=== PATIENT | female | born 1995 | race African-American/Black ===

== ENCOUNTER 2018-11-11 23:46 | Emergency (ER) | payer SELFPAY ==
--- NOTE | 2018-11-11 23:56 | ER ---
Nurse's Notes [facility] Name: Mihir Sifuentes Age: 23 yrs Sex: Female : 1995 Arrival Date: 11/11/2018 Time: 23:46 Bed Waiting Private MD: Diagnosis: ED Course: 11/11 23:46 Patient arrived in ED. am2 23:55 Patient's name was called from ER lobby. No response. Unable to locate patient. Will ea disposition as left without being seen by a provider. Administered Medications: No medications were administered Outcome: 23:56 Patient left the ED. ea Signatures: Paty Fernandez am2 Mami Simmons, RN RN ea
== END 2018-11-11 23:56 | disposition left against medical advice (07) ==
LOC: ER 23:46
DX: Z53.21 Procedure and treatment not carried out due to patient leaving prior to being seen by health care provider (principal)

== ENCOUNTER 2023-04-23 14:33 | Emergency (ER) | payer SELFPAY ==
--- OUTSIDE RECORDS SUMMARY | 2023-04-23 14:38 | XMS REPORT | Continuity of Care Document ---
:1995 Author Organization [facility] t Address [address] [facility] [address] [place] [address] Care Team Providers Name Role Phone ROSA PARKS Attending Clinician Unavailable ROSA PARKS Admitting Clinician Unavailable Problems This patient has no known problems. Allergies, Adverse Reactions, Alerts This patient has no known allergies or adverse reactions. Medications This patient has no known medications. Procedures This patient has no known procedures. Encounters Start End Encounter Admission Attending Care Care Encounter Source Date/Time Date/Time Type Type Clinicians Facility Department ID 2023-02-09 2023-02-09 Inpatient ER GRISELDA PARKS MED [id number] 04:08:00 12:00:00 ROSA [id number] [facility] Results This patient has no known results.
--- NOTE | 2023-04-23 15:27 | ER ---
Nurse's Notes [facility] Name: Mihir Sifuentes Age: 27 yrs Sex: Female : 1995 Arrival Date: 04/23/2023 Time: 14:33 Bed Waiting Private MD: Diagnosis: ED Course: 04/23 14:34 Patient arrived in ED. rg4 14:40 Paty Vasquez NP is PHCP. aj3 14:40 Shawn Stewart MD is Attending Physician. aj3 15:14 not in lobby when called to triage. ll1 Administered Medications: No medications were administered Outcome: 15:26 Patient left the ED. ll1 Signatures: Pati Foster rg4 Raghu Johnson RN RN ll1 Paty Vasquez NP LABORATORY SPECIALIST aj3
--- NOTE | 2023-04-24 15:27 | EDPHYS ---
Physician Documentation [facility] Name: Mihir Sifuentes Age: 27 yrs Sex: Female : 1995 Arrival Date: 04/23/2023 Time: 14:33 Bed Waiting Private MD: ED Physician Shawn Stewart HPI: 04/23 18:56 . aj3 Administered Medications: No medications were administered Disposition Summary: 04/23/23 15:26 Eloped Disposition: Before Triage ll1 Reason: unknown ll1 Signatures: Raghu Johnson RN RN ll1 Paty Vasquez NP LABORER GOLD LEAF aj3 Corrections: (The following items were deleted from the chart) 18:57 17:00 She reports having some vaginal discharge off and on for the last couple of aj3 months but worse the last few days.. aj3 18:57 17:00 This 27 yrs old Black Female presents to ER via Unassigned with complaints of aj3 Vaginal Problem. aj3 18:59 16:48 Patient medically screened. aj3 aj3
== END 2023-04-23 15:26 | disposition left against medical advice (07) ==
LOC: ER 14:33
DX: Z02.9 Encounter for administrative examinations, unspecified (principal)

== ENCOUNTER 2023-04-23 15:38 | Emergency (ER) | payer SELFPAY ==
--- OUTSIDE RECORDS SUMMARY | 2023-04-23 15:41 | XMS REPORT | Continuity of Care Document ---
:1995 Author Organization [facility] t Address [address] [place] [id number] Care Team Providers Name Role Phone ROSA [...] ID 2023-02-09 2023-02-09 Inpatient ER GRISELDA PARKS [facility] [id number] 04:08:00 12:00:00 ROSA [id number] [facility] Results This patient has no known results.
--- NOTE | 2023-04-23 18:42 | EDPHYS ---
Physician Documentation [facility] Name: Mihir Sifuentes Age: 27 yrs Sex: Female : 1995 Arrival Date: 04/23/2023 Time: 15:38 Bed 10 Private MD: ED Physician Shawn Stewart HPI: 04/23 16:20 This 27 yrs old Black Female presents to ER via Ambulatory with complaints of Vaginal aj3 Problem. 16:20 Patient reports having vaginal discharge for the last 2 months off-and-on but became aj3 worse the last 2 days. She does report that her partner had trichomonas and was getting treated for it. No reports of any vaginal itching, bleeding, lesions, fever or chills.. Historical: - Allergies: 16:03 lactose (bulk); ll1 - PMHx: 16:03 None; ll1 - PSHx: 16:03 None; ll1 - Immunization history:: Adult Immunizations up to date. - Social history:: Smoking status: Patient denies any tobacco usage or history of. ROS: 16:20 Constitutional: Negative for fever, chills, and weight loss, Cardiovascular: Negative aj3 for chest pain, palpitations, and edema, Respiratory: Negative for shortness of breath, cough, wheezing, and pleuritic chest pain, Abdomen/GI: Negative for abdominal pain, nausea, vomiting, diarrhea, and constipation, Skin: Negative for injury, rash, and discoloration, Neuro: Negative for syncope, headache, weakness, numbness, tingling, and seizure. 16:20 : Positive for vaginal discharge, Negative for difficulty urinating, foul smelling urine, vaginal bleeding, vaginal itching, menstrual abnormality. Exam: 16:20 Constitutional: This is a well developed, well nourished patient who is awake, alert, aj3 and in no acute distress. Cardiovascular: Regular rate and rhythm with a normal S1 and S2. No gallops, murmurs, or rubs. Normal PMI, no JVD. No pulse deficits. Respiratory: Lungs have equal breath sounds bilaterally, clear to auscultation and percussion. No rales, rhonchi or wheezes noted. No increased work of breathing, no retractions or nasal flaring. Abdomen/GI: Soft, non-tender, with normal bowel sounds. No distension or tympany. No guarding or rebound. No evidence of tenderness throughout. MS/ Extremity: Pulses equal, no cyanosis. Neurovascular intact. Full, normal range of motion. Neuro: Awake and alert, GCS 15, oriented to person, place, time, and situation. Motor strength 5/5 in all extremities. Sensory grossly intact. Normal gait. Vital Signs: 16:05 BP 138 / 87; Pulse 104; Resp 17; Temp 97.4; Pulse Ox 100% ; Pain 0/10; ll1 16:05 Pain Scale: Adult ll1 MDM: 16:12 Patient medically screened. aj3 16:20 Differential diagnosis: Flor, trichomonas, BV, STI. Data reviewed: vital signs, aj3 nurses notes, I have discussed the patient's presentation/case with the attending Emergency Department Physician;. Care significantly affected by the following Social Determinants of Health: Poor access to healthcare and/or lack of insurance. ED course: Patient offered to do a self swab for wet prep due to inability to do exam in room. Patient consented to doing self swab and currently pending results.. 18:57 Data reviewed: lab test result(s), wet prep. ED course: Discussed wet prep results with aj3 patient and plan to start Flagyl. Patient was also offered ceftriaxone and azithromycin for possible gonorrhea/chlamydia which she agreed to initially. While doing discharge paperwork, the patient told RN that she did not want the shot or any prescription. She then proceeded to walk out with her .. 04/23 16:13 Order name: GC (Cornell/Chl) Probe URINE aj3 04/23 16:13 Order name: Wet Prep; Complete Time: 18:39 aj3 Administered Medications: 18:52 CANCELLED (Patient Refused): Rocephin (cefTRIAXone) IM 500 mg IM once aj3 18:52 CANCELLED (Patient Refused): AZITHromycin PO 1 grams PO once aj3 Disposition: 17:57 I reviewed the patient's care provided by Advanced Practice Provider \T\ agree w/ the cp3 diagnosis \T\ care plan. I personally saw the pt \T\ performed a substantive portion of the visit, incldng all aspects of the (History/Exam/Medical Decision Making). Disposition Summary: 04/23/23 18:41 Discharge Ordered Location: Home aj3 Problem: new aj3 Symptoms: are unchanged aj3 Condition: Stable aj3 Diagnosis - Vaginitis, vulvitis and vulvovaginitis in diseases classified elsewhere - Bacterial aj3 Vaginosis Followup: aj3 - With: Private Physician - When: - Reason: If symptoms return, Recheck today's complaints, Re-evaluation by your physician Followup: aj3 - With: Emergency Department - When: - Reason: Fever > 102 F, Worsening of condition Discharge Instructions: - Discharge Summary Sheet aj3 - Bacterial Vaginosis aj3 Forms: - Medication Reconciliation Form aj3 - Thank You Letter aj3 - Antibiotic Education aj3 - Prescription Opioid Use aj3 - Patient Portal Instructions aj3 - Leadership Thank You Letter aj3 Prescriptions: - Flagyl 500 mg Oral Tablet - take 1 tablet by ORAL route every 12 hours for 7 days; 14 tablet; Refills: 0, aj3 Product Selection Permitted Signatures: Dispatcher [employer] Shawn Estevez MD MD cp3 Raghu Johnson, RN RN ll1 Paty Vasquez NP DIRECTOR OF BRAND MARKETING aj3 Corrections: (The following items were deleted from the chart) 16:05 15:41 Allergies: No Known Allergies; ll1 1 18:52 18:49 Rocephin (cefTRIAXone) IM 500 mg IM once ordered. aj3 aj3 18:52 18:49 AZITHromycin PO 1 grams PO once ordered. aj3 aj3
--- NOTE | 2023-04-23 18:42 | ER ---
Nurse's Notes [facility] Name: Mihir Sifuentes Age: 27 yrs Sex: Female : 1995 Arrival Date: 04/23/2023 Time: 15:38 Bed 10 Private MD: Diagnosis: Vaginitis, vulvitis and vulvovaginitis in diseases classified elsewhere-Bacterial Vaginosis Presentation: 04/23 15:41 Coronavirus screen: Client denies travel out of the [place] in the last 14 days. At this ll1 time, the client does not indicate any symptoms associated with coronavirus-19. Ebola Screen: Patient denies travel to an Ebola-affected area in the 21 days before illness onset. Initial Sepsis Screen: Does the patient meet any 2 criteria? No. Patient's initial sepsis screen is negative. Does the patient have a suspected source of infection? No. Patient's initial sepsis screen is negative. Risk Assessment: Do you want to hurt yourself or someone else? Patient reports no desire to harm self or others. 15:41 Method Of Arrival: Ambulatory ll1 16:05 Acuity: MARYLOU 4 ll1 16:05 Chief complaint: Patient states: Vaginal discharge for about 2 months. SO has ll1 trichomonas. Onset of symptoms was February 01, 2023. Historical: - Allergies: 16:03 lactose (bulk); ll1 - PMHx: 16:03 None; ll1 - PSHx: 16:03 None; ll1 - Immunization history:: Adult Immunizations up to date. - Social history:: Smoking status: Patient denies any tobacco usage or history of. Vital Signs: 16:05 BP 138 / 87; Pulse 104; Resp 17; Temp 97.4; Pulse Ox 100% ; Pain 0/10; ll1 16:05 Pain Scale: Adult ll1 ED Course: 15:39 Patient arrived in ED. rg4 15:40 Paty Vasquez NP is PHCP. aj3 15:40 Shawn Stewart MD is Attending Physician. aj3 15:41 Arm band placed on. ll1 16:05 Triage completed. ll1 17:09 Wet Prep Sent. jl7 17:09 GC (Cornell/Chl) Probe URINE Sent. jl7 18:53 No provider procedures requiring assistance completed. Patient did not have IV access mb9 during this emergency room visit. Administered Medications: 18:52 CANCELLED (Patient Refused): Rocephin (cefTRIAXone) IM 500 mg IM once aj3 18:52 CANCELLED (Patient Refused): AZITHromycin PO 1 grams PO once aj3 Outcome: 18:41 Discharge ordered by . aj3 18:53 Discharged to home ambulatory. mb9 18:53 Condition: stable 18:53 Discharge instructions given to patient, Instructed on discharge instructions, follow up and referral plans. Demonstrated understanding of instructions, follow-up care, medications, Prescriptions given X 1. 18:53 Patient left the ED. mb9 Signatures: Pati Foster rg4 Hernandez Jackson RN RN jl7 Raghu Johnson RN RN ll1 Paty Vasquez VALVE MAKER VALVE MAKER aj3 Maddy Delarosa RN RN mb9 Corrections: (The following items were deleted from the chart) 16:05 15:41 Allergies: No Known Allergies; ll1 ll1 16:09 16:05 BP 138 / 87; Pulse 104bpm; Resp 17bpm; Pulse Ox 100%; Pain 0/10, Adult; ll1 ll1
[2023-04-23 18:57] VITALS: BP 138/87; TEMP 97.4; O2SAT 100
== END 2023-04-23 18:53 | disposition home or self-care (01) ==
LOC: ER 15:38
DX: N76.0 Acute vaginitis (principal)
CPT/HCPCS: 87210; 87490; 87590; 99283